=== PATIENT | male | born 1965 | race Caucasian/White ===

== ENCOUNTER 2020-05-11 16:32 | Emergency (ER) | payer MEDICAID, SELFPAY ==
[2020-05-11 16:37] VITALS: BP 139/76; PULSE 88; RESP 17; TEMP 37.2; O2SAT 97; BMI 28.5
--- NOTE | 2020-05-11 16:47 | ED_ITS ---
HPI - General Adult General Chief complaint: General Medical Stated complaint: COUGH,RASH Time Seen by Provider: 05/11/20 16:36 Source: patient Mode of arrival: ambulatory Limitations: no limitations History of Present Illness HPI narrative: Comes to emergency room complaining of cough for 1 day. Patient states that his boss and his family have been sick with a upper respiratory infection, to their knowledge not COVID, patient was asked to come to the emergency room for evaluation. Patient states that he only has a slight tickle in his throat. Patient also complaining of couple of 1 week of a rash in his l ower extremities and distal upper extremities. Patient states initially he was told that is ringworm, however the antifungal has not been working. Patient states the rash is spreading, it is very itchy MD complaint: Rash, cough Related Data Previous Rx's Medication Instructions Recorded hydrocortisone 1 appl TOPICAL TID #28.35 g 05/11/20 Allergies Allergy/AdvReac Type Severity Reaction Status Date / Time No Known Allergies Allergy Verified 05/11/20 16:34 Review of Systems Review of Systems: Constitutional : No Weight loss, No Fever, No Chills, No Night Sweats, No Fatigue, No Malaise ENT/Mouth : No Hearing loss, No Ear Pain, No Nasal Congestion, No Sinus Pain, No Hoarseness, No sore throat, No Rhinorrhea, No Swallowing Difficulty Eyes: No Eye Pain, No Swelling, No Redness, No Foreign Body, No Discharge, No Vision Changes Cardiovascular : No Chest Pain, No SOB, No Dyspnea on Exertion, No Orthopnea, No Edema, No Palpitations Respiratory : No Cough, sensation of slight tickle in the throat, No Sputum, No Wheezing, No Smoke Exposure, No Dyspnea Gastrointestinal : No Nausea, No Vomiting, No Diarrhea, No Constipation, No abdominal Pain, No Hematochezia, No Melena Genitourinary : no irregular bleeding, No Dysuria, No Urinary Frequency, No Hematuria, No Urinary Incontinence, No Urgency, No Flank Pain, No Urinary Flow Changes, No Hesitancy Musculoskeletal : No joint pain, No Myalgias, No Joint Swelling Skin : Rash in distal lower and upper extremities bilaterally Neuro : No Weakness, No Numbness, No Paresthesias, No Loss of Consciousness, No Dizziness, No Headache Psych : No Anxiety/Panic, No Depression, No SI/HI/AH/VH, No Social Issues, Heme/Lymph: No Bruising, No Bleeding,No Lymphadenopathy Endocrine : No Polyuria, No Polydipsia, No Temperature Intolerance REPLACED BY [facility] Past Medical History Medical History No active medical problems Social History Social History Alcohol intake: never Smoking Status: Never smoker Use of substances other than those prescribed or required for medical reasons: No Advance Directives: No Advance Directives Information Provided: Yes Physical Exam Vital Signs: Appearance: Alert. Oriented X3. No acute distress. Eyes: Pupils equal, round and reactive to light. ENT: Pharynx normal. Neck: Normal inspection. Neck supple. No lymph nodes noted. No crepitus CVS: Normal heart rate and rhythm. Pulses normal. Normal S1 and S2 Respiratory: No respiratory distress. Breath sounds normal. No Wheezing. No rales Abdomen: Soft and nontender. No rigidity. No distention. good BS x4 Skin: Skin warm and dry. Patient has eczema like rash in distal upper extremities and lower extremities, no definite ring like rash Extremities: No lower extremity edema. No lower extremity edema. No Lacerations. No Rash Neuro: Oriented X 3. No motor deficit. No sensory deficit. Moving all extermities. No slurred speech. Course Course Course Narrative: I discussed with the patient his physical exam, the rash at this time does not seem to be circular to indicates that this is ringworm. Patient likely has dermatitis. Patient was tested for COVID-19, results pending Discharge Plan Discharge Clinical Impression: Dermatitis, Tickle in throat Patient Disposition: Home, Self-Care Instructions: Dermatitis (ED) Additional Instructions: Please follow-up with your primary care physician tomorrow. If you have any worsening or new symptoms, please return to the emergency room or call 911 Prescriptions: New hydrocortisone 2.5 % cream 1 appl topical TID Qty: 28.35 RF: 0
== END 2020-05-11 17:20 | disposition home or self-care (01) ==
PROVIDERS: Emergency Provider Emergency Medicine; PCP Internal Medicine
DX: L30.9 Dermatitis, unspecified (principal); Z20.828 Contact with and (suspected) exposure to other viral communicable diseases; R05 Cough
CPT/HCPCS: 99283; U0003

== ENCOUNTER 2020-05-12 11:28 | Emergency (ER) | payer MEDICAID, SELFPAY ==
[2020-05-12 11:56] VITALS: BP 108/61; PULSE 77; RESP 17; TEMP 36.1; O2SAT 95; BMI 28.5
--- NOTE | 2020-05-12 12:08 | ED_ITS ---
HPI - Back Pain/Injury General Chief Complaint: Back Pain/Injury Stated Complaint: back pain Time Seen by Provider: 05/12/20 12:00 Source: patient Mode of arrival: ambulatory History of Present Illness HPI Narrative: 55-year-old Male with no significant past medical history presenting to ED complaining of low back radiating down left leg since yesterday s/p bending over and then feeling the pain. Denies direct trauma/falls, or lifting injury. Reports tingling down the left leg. Denies weakness, urinary incontinence, urinary retention, fever MD elicited complaint: back pain Related Data Previous Rx's Medication Instructions Recorded hydrocortisone 1 appl TOPICAL TID #28.35 g 05/11/20 acetaminophen [Tylenol Extra 500 mg PO Q6H PRN #20 tab 05/12/20 Strength] cyclobenzaprine 5 mg PO Q8H PRN 5 Days #14 tab 05/12/20 lidocaine [Lidoderm] 1 patch TOPICAL DAILY PRN #30 ea 05/12/20 MDD remove after 12 hours naproxen 500 mg PO BID PRN 10 Days #20 tab 05/12/20 Allergies Allergy/AdvReac Type Severity Reaction Status Date / Time No Known Allergies Allergy Verified 05/11/20 16:34 Review of Systems Review of Systems: Constitutional: No Weight loss, No Fever, No Chills Genitourinary:, No Dysuria, No Urinary Frequency, No Hematuria, No Urinary Incontinence Musculoskeletal: + joint pain, No Myalgias, No Joint Swelling Skin: No Skin Lesions, No rash Neuro: No Weakness, No Numbness, +LLE tingling Yes all other systems are reviewed and are negative PMFSH Past Medical History Attestation statement: The following information was validated with the patient. Medical History No active medical problems Social History Social History Alcohol intake: never Smoking Status: Never smoker Physical Exam Vital Signs: Vital Signs: Last Vital Signs Temp 97.0 F 05/12/20 11:56 Pulse 77 05/12/20 11:56 Resp 17 05/12/20 11:56 BP 108/61 05/12/20 11:56 Pulse Ox 95 05/12/20 11:56 Body Mass Index 28.5 Const: General: cooperative and healthy appearing Orientation/consciousn ess: patient oriented x3 Limitations: no limitations HENMT: Head: Yes normal to inspection Ears: hearing grossly normal bilaterally General nose exam: Normal external nose present Face and sinus: Yes normal facial exam Eyes: General: appearance normal, both eyes and all related structures EOM: EOMs intact bilaterally Neck: Neck: Yes normal visual inspection Resp: Effort & Inspection: normal respiratory effort Cardio: Rate: regular rate Peripheral pulses: dorsalis pedis present GI: Inspection: Yes normal to inspection Back/Spine/Pelvis: Other: No midline thoracic/lumbar spinous tenderness. + bilateral > left-sided lower lumbar MSK tenderness Skin: Rashes: no rashes Wounds: no wounds Neuro: Other: No saddle anesthesia General: patient oriented x3, gait normal, tone normal and moves all extremities Gait exam (Neuro): Normal gait present Motor exam (neuro): 5/5 motor strength present throughout Extrem: General: Yes normal to inspection MDM - Back Pain/Injury MDM Narrative Medical decision making narrative: No red flag symptoms or midline spinous tenderness. Likely MSK pain. Low concern for cauda equina or cord compression Discharge Plan Discharge Clinical Impression: Strain of lumbar region Patient Disposition: Home, Self-Care Instructions: Acute Low Back Pain (ED) Additional Instructions: Your pain is likely musculoskeletal Flexeril is a muscle relaxer, take at night as it makes you drowsy, do not drive, drink alcohol, or operate machinery while taking it Naproxen as an anti-inflammatory / pain medication, take with food Lidoderm patches are numbing patches, apply to painful area In addition take Tylenol at home If symptoms persist or worsen, pain becomes unbearable, you developed urinary retention or incontinence, or weakness return to the ED Prescriptions: New acetaminophen [Tylenol Extra Strength] 500 mg tablet 500 mg PO Q6H PRN (Reason: pain or fever) Qty: 20 RF: 0 lidocaine [Lidoderm] 5 % adhesive patch,medicated 1 patch topical DAILY MDD remove after 12 hours PRN (Reason: pain) Qty: 30 RF: 0 naproxen 500 mg tablet 500 mg PO BID PRN (Reason: pain) 10 Days Qty: 20 RF: 0 cyclobenzaprine 5 mg tablet 5 mg PO Q8H PRN (Reason: pain (scale score 7-10)) 5 Days Qty: 14 RF: 0 No Action hydrocortisone 2.5 % cream 1 appl topical TID Qty: 28.35 RF: 0 Referrals: Quan Jackson MD [Primary Care Provider] - 5 days
[2020-05-12] MEDS: Cyclobenzaprine HCl 5 MG TABLET PO (12:13)
[2020-05-12] MEDS: Acetaminophen 325 MG TABLET 650 MG PO (12:13)
[2020-05-12] MEDS: Ketorolac Tromethamine 15 MG/ML VIAL IM (12:13)
== END 2020-05-12 12:57 | disposition home or self-care (01) ==
LOC: HO.ED 12:33
PROVIDERS: Emergency Provider Emergency Medicine; PCP Internal Medicine
DX: S39.012A Strain of muscle, fascia and tendon of lower back, initial encounter (principal); X58.XXXA Exposure to other specified factors, initial encounter; Y93.9 Activity, unspecified; Y92.9 Unspecified place or not applicable; Y99.9 Unspecified external cause status
CPT/HCPCS: 96372; 99284; J1885